=== PATIENT | female | born 1985 | race Caucasian/White ===

== ENCOUNTER 2016-08-22 00:07 | Inpatient (IN) | payer OTHER ==
[2016-08-22 01:31] LABS: HCT 37.1 % (37.0-47.0); HGB 12.5 g/dl (12.5-16.0); MCH 28.7 pg (25.0-31.0); MCHC 33.7 g/dL (32.0-36.0); MCV 85.1 fL (78.0-100.0); RBC 4.36 M/uL (4.20-5.40); RDW 18.4 % (11.5-14.0); WBC 13.2 K/uL (4.0-10.5)
[2016-08-22 01:34] LABS: BILIRUBIN NEGATIVE (NEGATIVE); BLOOD 2+ Ery/uL (NEGATIVE); CLARITY CLOUDY (CLEAR); COLOR YELLOW (YELLOW); GLUCOSE (U) NORMAL (NORMAL); KETONE (U) NEGATIVE (NEGATIVE); LEUKOCYTES 3+ Leu/uL (NEGATIVE); NITRITE NEGATIVE (NEGATIVE); PROTEIN NEGATIVE (NEGATIVE); SPECIFIC GRAVITY <=1.005 (1.001-1.030); UROBILINOGEN 0.2 mg/dL (0.2-1.0); pH 6.5 (5.0-9.0)
[2016-08-22 01:38] LABS: BACTERIA 1+; URINARY WBC 20-50
[2016-08-22 01:40] LABS: AMPHETAMINES NEGATIVE (NEGATIVE); BARBITURATES NEGATIVE (NEGATIVE); BENZODIAZEPINES NEGATIVE (NEGATIVE); COCAINE NEGATIVE (NEGATIVE); MARIJUANA (THC) NEGATIVE (NEGATIVE); METHADONE NEGATIVE (NEGATIVE); TRICYCLIC ANTIDEPRESSANT NEGATIVE (NEGATIVE)
[2016-08-23 09:39] LABS: HGB 9.5 g/dl (12.5-16.0); MCHC 33.9 g/dL (32.0-36.0); MCV 85.4 fL (78.0-100.0); MPV 9.7 fL (6.0-9.5); RBC 3.28 M/uL (4.20-5.40); RDW 18.5 % (11.5-14.0); WBC 16.4 K/uL (4.0-10.5)
== END 2016-08-23 12:54 | disposition home or self-care (01) | DRG 775 ==
LOC: FOB 00:07
PROVIDERS: ADMIT Obstetrics & Gynecology
PROC: 10E0XZZ Delivery of Products of Conception, External Approach (ICD-10-PCS; principal; 2016-08-22)
PROC: 0KQM0ZZ Repair Perineum Muscle, Open Approach (ICD-10-PCS; 2016-08-22)
PROC: 3E0P7GC Introduction of Other Therapeutic Substance into Female Reproductive, Via Natural or Artificial Opening (ICD-10-PCS; 2016-08-22)
PROC: 4A1HX4Z Monitoring of Products of Conception, Cardiac Electrical Activity, External Approach (ICD-10-PCS; 2016-08-22)
PROC: 10907ZC Drainage of Amniotic Fluid, Therapeutic from Products of Conception, Via Natural or Artificial Opening (ICD-10-PCS; 2016-08-22)
DX: O48.0 Post-term pregnancy (principal); O41.1230 Chorioamnionitis, third trimester, not applicable or unspecified; D62 Acute posthemorrhagic anemia; Z3A.41 41 weeks gestation of pregnancy; Z37.0 Single live birth; O99.03 Anemia complicating the puerperium; O75.89 Other specified complications of labor and delivery; O70.1 Second degree perineal laceration during delivery; O77.0 Labor and delivery complicated by meconium in amniotic fluid; K21.9 Gastro-esophageal reflux disease without esophagitis; O76 Abnormality in fetal heart rate and rhythm complicating labor and delivery
CPT/HCPCS: 36415; 80305; 81001; 88307; J1580; J2300; J2405